=== PATIENT | male | born 1950 | race Caucasian/White ===

== ENCOUNTER 2019-06-21 17:25 | Emergency (ER) | payer MEDICARE, OTHER ==
[~2019-06-21] VITALS: Ht 175.3 cm; Wt 104.3 kg
[~2019-06-21 17:25] MED LIST: ASCO500 PO; CINNAMON PLUS1 EACH PO; DETOX; GLIP5 PO; GOLDENSEAL; INVOKANA300 MG PO; Multiple Vitam1 EAC1; OMEGA-3 EC SOF1 EAC1 PO; Prinivil10 MG PO; [UNRECOGNIZED DRUG - OTHER] PO
[2019-06-21 19:45] LABS: Source, Urine Catheter
[2019-06-21 19:58] LABS: Bilirubin, Urine Neg (Neg); Blood, Urine 5+ (Neg); Glucose Qualitative, Urine Neg (Neg); Ketones, Urine 1+ (Neg); Leukocyte Esterase, Urine Neg (Neg); Nitrite, Urine Neg (Neg); Protein, Urine 4+ (Neg); Specific Gravity, Urine 1.015 (1.003-1.022); Urobilinogen, Urine NORM (Normal); pH, Urine 6.5 (5.0-8.0)
[2019-06-21 20:08] LABS: Appearance, Urine Bloody (Clear); Color, Urine Red (P-Yellow)
[2019-06-21 20:13] LABS: Bacteria Not Seen /hpf; Red Blood Cells, Urine TNTC /hpf (0-2); Squamous Epithelial Cells Not Seen /hpf (Few); White Blood Cells, Urine Not Seen /hpf (0-5)
[2019-06-21 20:34] LABS: BASOPHILS ABSOLUTE AUTO 0.07 K/mm3 (0.00-0.23); BASOPHILS PERCENT AUTO 1 % (0-2); EOSINOPHILS ABSOLUTE AUTO 0.14 K/mm3 (0.00-0.68); EOSINOPHILS PERCENT AUTO 2 % (0-6); Hematocrit 47.1 % (37.0-53.0); IMMATURE GRAN ABSOLUTE AUTO 0.05 K/mm3 (0.00-0.10); IMMATURE GRAN PERCENT AUTO 1 % (0-1); LYMPHOCYTES ABSOLUTE AUTO 1.55 K/mm3 (0.84-5.20); LYMPHOCYTES PERCENT AUTO 22 % (21-46); MONOCYTES ABSOLUTE AUTO 0.57 K/mm3 (0.16-1.47); MONOCYTES PERCENT AUTO 8 % (4-13); Mean Corpuscular HGB 29.9 pg (26.0-34.0); Mean Corpuscular Volume 88 fL (80-100); Mean Platelet Volume 10.5 fL (9.1-12.4); NEUTROPHILS ABSOLUTE AUTO 4.83 K/mm3 (1.96-9.15); NEUTROPHILS PERCENT AUTO 67 % (41-73); Platelet Count 230 K/mm3 (150-400); RDW Coefficient Variation 13.7 % (11.7-14.2); RDW Standard Deviation 44.3 fL (35.1-46.3); Red Blood Cell Count 5.35 M/mm3 (4.30-5.90); White Blood Cell Count 7.21 K/mm3 (4.00-11.30)
[2019-06-21 20:49] LABS: Anion Gap 8 mmol/L (6-16); Blood Urea Nitrogen 23 mg/dL (8-24); Bun/Creatinine Ratio 20.9 (12.0-20.0); CO2, Blood 27 mmol/L (21-32); Calcium, Blood 8.9 mg/dL (8.5-10.1); Chloride, Blood 107 mmol/L (98-108); Glomerular Filtration Rate >60 (60-); Glucose, Blood 96 mg/dL (70-99); Sodium, Blood 142 mmol/L (136-145)
[2019-06-22] MEDS ORDERED: Flomax0.4 MG PO (02:39)
[2019-06-22] MEDS ORDERED: SILDENAFIL CIT100 MG PO (02:45)
== END 2019-06-21 21:24 | disposition home or self-care (01) ==
LOC: ER 17:25
PROVIDERS: Emergency Medicine
DX: R31.9 Hematuria, unspecified (principal); R33.9 Retention of urine, unspecified; E11.9 Type 2 diabetes mellitus without complications; I10 Essential (primary) hypertension; I48.91 Unspecified atrial fibrillation; Z88.8 Allergy status to other drugs, medicaments and biological substances; Z79.899 Other long term (current) drug therapy; Z79.84 Long term (current) use of oral hypoglycemic drugs; Z87.891 Personal history of nicotine dependence
CPT/HCPCS: 36415; 51700; 51702; 51798; 80048; 81001; 85025; 99283-25

== ENCOUNTER 2019-06-22 01:34 | Emergency (ER) | payer MEDICARE, OTHER ==
[~2019-06-22] VITALS: Ht 175.3 cm; Wt 104.3 kg
[2019-06-22 02:13] LABS: Source, Urine Catheter
[2019-06-22 02:16] LABS: Appearance, Urine Bloody (Clear); Bilirubin, Urine Neg (Neg); Blood, Urine 5+ (Neg); Color, Urine Red (P-Yellow); Glucose Qualitative, Urine Neg (Neg); Ketones, Urine Neg (Neg); Leukocyte Esterase, Urine Neg (Neg); Nitrite, Urine Neg (Neg); Protein, Urine 4+ (Neg); Specific Gravity, Urine 1.015 (1.003-1.022); Urobilinogen, Urine NORM (Normal); pH, Urine 6.5 (5.0-8.0)
[2019-06-22 02:22] LABS: Red Blood Cells, Urine TNTC /hpf (0-2); White Blood Cells, Urine 0-2 /hpf (0-5)
[2019-06-22 02:23] LABS: Bacteria Not Seen /hpf; Squamous Epithelial Cells Not Seen /hpf (Few)
[2019-06-22] MEDS ORDERED: Flomax0.4 MG PO (02:39)
[2019-06-22] MEDS ORDERED: SILDENAFIL CIT100 MG PO (02:45)
== END 2019-06-22 03:02 | disposition home or self-care (01) ==
LOC: ER 01:34
PROVIDERS: Emergency Medicine
DX: T83.83XA Hemorrhage due to genitourinary prosthetic devices, implants and grafts, initial encounter (principal); I10 Essential (primary) hypertension; E11.9 Type 2 diabetes mellitus without complications; I48.91 Unspecified atrial fibrillation; Z88.8 Allergy status to other drugs, medicaments and biological substances; Z79.899 Other long term (current) drug therapy; Z79.84 Long term (current) use of oral hypoglycemic drugs
CPT/HCPCS: 51700; 81001; 99283-25

== ENCOUNTER 2024-05-17 10:20 | Inpatient (IN) | payer MEDICARE, BC ==
[~2024-05-17] VITALS: Ht 170.2 cm; Wt 104.7 kg
[~2024-05-17 10:20] MED LIST changes: +Flomax0.4 MG PO; +SILDENAFIL CIT100 MG PO
[2024-05-17 11:50] LABS: BASOPHILS ABSOLUTE AUTO 0.08 K/mm3 (0.00-0.23); BASOPHILS PERCENT AUTO 1 % (0-2); EOSINOPHILS ABSOLUTE AUTO 0.05 K/mm3 (0.00-0.68); EOSINOPHILS PERCENT AUTO 0 % (0-6); Hematocrit 45.4 % (37.0-53.0); Hemoglobin 15.7 g/dL (13.5-17.5); IMMATURE GRAN ABSOLUTE AUTO 0.05 K/mm3 (0.00-0.10); IMMATURE GRAN PERCENT AUTO 0 % (0-1); LYMPHOCYTES PERCENT AUTO 15 % (21-46); MONOCYTES ABSOLUTE AUTO 1.03 K/mm3 (0.16-1.47); MONOCYTES PERCENT AUTO 8 % (4-13); Mean Corpuscular HGB 29.5 pg (26.0-34.0); Mean Corpuscular HGB Conc 34.6 g/dL (31.5-36.5); Mean Corpuscular Volume 85 fL (80-100); Mean Platelet Volume 10.2 fL (9.1-12.4); NEUTROPHILS ABSOLUTE AUTO 9.25 K/mm3 (1.96-9.15); NEUTROPHILS PERCENT AUTO 75 % (41-73); Platelet Count 259 K/mm3 (150-400); RDW Coefficient Variation 14.6 % (11.7-14.2); RDW Standard Deviation 45.4 fL (35.1-46.3); Red Blood Cell Count 5.33 M/mm3 (4.30-5.90); White Blood Cell Count 12.36 K/mm3 (4.00-11.30)
[2024-05-17 12:25] LABS: Albumin, Blood 3.9 g/dL (3.4-5.0); Albumin/Globulin Ratio 1.1 (0.8-1.8); Bilirubin, Total 1.4 mg/dL (0.1-1.0); Bun/Creatinine Ratio 15.1 (12.0-20.0); Calcium, Blood 8.8 mg/dL (8.5-10.1); Creatinine, Blood 1.26 mg/dL (0.60-1.20); Globulin, Blood 3.7 g/dL (2.2-4.0); Potassium, Blood 4.6 mmol/L (3.5-5.5); Total Protein, Blood 7.6 g/dL (6.4-8.2)
[2024-05-17] MEDS ORDERED: Aspirin 325 MG Tab PO ONE (13:45)
[2024-05-17 14:46] LABS: Source, Urine Clean Catch
[2024-05-17 15:03] LABS: Appearance, Urine Clear (Clear); Bilirubin, Urine Neg (Neg); Blood, Urine Neg (Neg); Color, Urine Yellow (P-Yellow); Glucose Qualitative, Urine Neg (Neg); Ketones, Urine 2+ (Neg); Leukocyte Esterase, Urine Neg (Neg); Nitrite, Urine Neg (Neg); Protein, Urine 2+ (Neg); Urobilinogen, Urine 1+ (Normal)
[2024-05-17 15:50] LABS: Bacteria Rare /hpf; Red Blood Cells, Urine 0-2 /hpf (0-2); Squamous Epithelial Cells Rare /hpf (Few); White Blood Cells, Urine 0-2 /hpf (0-5)
[2024-05-17] MEDS ORDERED: NS 1,000 ML IV SCH (16:15)
[2024-05-17 18:34] VITALS: BP 144/79
[2024-05-17] MEDS ORDERED: [UNRECOGNIZED DRUG - OTHER] (18:37)
[2024-05-17] MEDS ORDERED: LISI5 PO (18:42)
[2024-05-17] MEDS ORDERED: WARF10 (18:46)
[2024-05-17] MEDS ORDERED: METO25ER PO (18:47)
[2024-05-17] MEDS ORDERED: TADALAFIL5 M1 PO (18:49)
[2024-05-17] MEDS ORDERED: TESTOSTERONE PO (18:52)
[2024-05-17] MEDS ORDERED: NOVOLIN N100 UNIT/2 (18:54)
[2024-05-17] MEDS ORDERED: [UNRECOGNIZED DRUG - OTHER] (18:55)
[2024-05-17 19:46] VITALS: BP 159/80
--- NOTE | 2024-05-17 21:39 | NUR ---
ASSUMED CARE OF THIS PATIENT AT 1900. BEDSIDE SHIFT REPORT GIVEN FROM RN LUCILA SHE INFORMS ME THE PATIENT ARRIVED TO THE UNIT AROUND 1824. PATIENT IS BEDSIDE, SHE WAS ABLE TO ASSIT WITH ADMIT INFORMATION AND EXPLAIN PT LAST KNOWN WELL TIME. ON 05/14 THE COUPLE WENT TO BE AROUND 2200, THE FOLLOWING MORNING THEY AWOKE AND THE PATIENT GOT READY FOR WORK. HE SEEMED TO BE TIRED AND FEELING UNWELL. THE NEXT DAY HE SPENT MOST OF THE DAY IN BED AND TOLD HIS HE TOUGHT HE WAS GETTING THE FLU. THE PT WAS ADMITTED FOR RECENT CVA, DEFICTS AT THIS TIME TO BE EXPRESSIVE APHASIA. PATIENT IS ABLE TO ANSWER "YES" & "NO" QUESTIONS CORRECTLY HE IS ALERT AND ORIENTATED. PATIENT HAS FULL ROM AND MOBILITY. NO FACIAL DROOP NOTED, ABILITY TO SMILE AND STICK OUT TOUNGE INTACT. PATIENT IS NOW RESTING IN BED, SCD'S PLACED ON PT. BED IN LOWEST POSTION, CALL LIGHT IN REACH.
[2024-05-17 23:24] VITALS: BP 123/80
[2024-05-18] VITALS (7 sets, daily range): BP systolic 137–157; BP diastolic 71–99
--- NOTE | 2024-05-18 02:52 | NUR ---
NURSE NOTE PATIENT HAS NOT VOIDED DURING SHIFT, BLADDER SCAN SHOWED 274 mls. PATIENT DENIES NEEDS TO VOID. PATIENT IS DRY. PATIENT DENIES NEEDS AT THIS TIME. BED IN LOWEST POSTION CALL LIGHT IN REACH.
[2024-05-18 05:13] LABS: Hematocrit 43.2 % (37.0-53.0); Hemoglobin 14.9 g/dL (13.5-17.5); Mean Corpuscular HGB 29.3 pg (26.0-34.0); Mean Corpuscular HGB Conc 34.5 g/dL (31.5-36.5); Mean Corpuscular Volume 85 fL (80-100); Mean Platelet Volume 10.2 fL (9.1-12.4); Platelet Count 206 K/mm3 (150-400); RDW Coefficient Variation 14.6 % (11.7-14.2); RDW Standard Deviation 45.3 fL (35.1-46.3); Red Blood Cell Count 5.09 M/mm3 (4.30-5.90); White Blood Cell Count 9.75 K/mm3 (4.00-11.30)
[2024-05-18 06:12] LABS: Anion Gap 9 mmol/L (3-11); Blood Urea Nitrogen 20 mg/dL (8-24); Bun/Creatinine Ratio 18.7 (12.0-20.0); CHOL/HDL RATIO 5.3; CO2, Blood 25 mmol/L (21-32); Calcium, Blood 8.7 mg/dL (8.5-10.1); Chloride, Blood 103 mmol/L (98-108); Cholesterol 227 mg/dL (50-200); Creatinine, Blood 1.07 mg/dL (0.60-1.20); Glomerular Filtration Rate 74 (60-); Glucose, Blood 179 mg/dL (70-99); HDL Cholesterol 43 mg/dL (>39); LDL/HDL RATIO 3.8; Low Density Lipoprotein Chol 162 mg/dL (0-110); Potassium, Blood 4.1 mmol/L (3.5-5.5); Sodium, Blood 133 mmol/L (136-145); Triglycerides 111 mg/dL (30-160); Very Low Density Lipoprot Chol 22 mg/dL (6-32)
--- NOTE | 2024-05-18 06:16 | NUR ---
SHIFT SUMMARY PT IS A+O X4 ABLE TO ANSWER "YES" & "NO" QUESTIONS. HE IS PLEASANT AND COOPERATIVE WITH CARES. EXPRESSIVE APHASIA NOTED T/O SHIFT. MOVEMENT & ROM INTACT. PATIENT HAS BEEN SLEEPING ON AND OFF DURING THE NIGHT IN BETWEEN CARES. SCD'S WERE IN PLACE BUT PATIENT REMOVED THEM AND REFUSED FOR THEM TO BE PUT BACK ON. HE HAS YET TO VOID DURING THE NIGHT AND DENIES THE NEED TOO HE IS DRY. NS AT 60 RUNNING. MRI SCREENING FORM FILLED OUT AND FAXED THIS AM. Q6 CBG'S TAKEN. BED IN LOWEST POSTION, CALL LIGHT IN REACH, WILL CONTINUE WITH PLAN OF CARE AND REPORT TO ONCOMING RN.
[2024-05-18] MEDS ORDERED: Aspirin 325 MG Tab PO SCH (09:00)
[2024-05-18] MEDS ORDERED: Metoprolol Succinate 25 MG TABCR PO SCH (13:30)
[2024-05-18] MEDS ORDERED: Apixaban 5 MG Tab PO SCH (13:30)
[2024-05-18 13:58] LABS: International Normalized Ratio 1.07; Prothrombin Time Results 11.4 Sec (9.7-11.5)
[2024-05-18] MEDS ORDERED: Atorvastatin 40 MG Tab PO SCH (14:00)
[2024-05-18] MEDS ORDERED: Insulin Human Lispro 100 Units/ML 3ML Syringe SC SCH ×2 (17:00)
--- NOTE | 2024-05-18 18:34 | NUR ---
End of Shift Pt A&O x4. Speech improving. Pt able to clearly state "yes" & "no" this AM, then able to state more words t/o shift as day went on. Pt w/ intermittent difficulty stating name & . Pt answers questions w/ appropriate Y/N responses. Pt VSS. Spo2 > 92% on RA. Monitor showing Afib, HR 80s-110. Pt HR briefly up to 160s when ambulating for first time this morning. Pt HR then back to baseline once back in bed. Pt unable to void this AM. Bladder scan showing approx 360 mls urine. Pt eventually able to void. Post bladder scan void done this afternoon showing approx 90 mls. Pt tolerating PO intake well.
[2024-05-19 03:49] VITALS: BP 151/87
--- NOTE | 2024-05-19 04:53 | NUR ---
SHIFT SUMMARY NO ACUTE CHANGES THIS SHIF. VSS. NEURO REMAINS UNCHANGED. RESIDUAL CVA DEFICITS CENTER AROUND EXPRESSIVE DYSPHAGIA. NEUROMOTOR DEFICITS NOT NOTED TO THIS RN ASSESMENT. PT SOMETIMES ABLE TO STATE NAME AND YEAR OF AND SOMETIMES NOT ABLE TO. ALWAYS STATES WIFS ANME CORRCTLY AND AT TIMES GETS TOWN/HOSPITAL LOCATION CORRECT. PT STATES HE KNOW'S THESE ANSWERS BUT JUST CAN'T "SPIT THEM OUT". REMAINS AFIB, CONTROLLED. ON RA. CONTINENT. HAS RESTED T/O MAJORITY OF SHIFT. BED ALARM REMAINS ON. BED IN LOW POSITION.
[2024-05-19 08:07] VITALS: BP 163/84
[2024-05-19 08:25] LABS: Hematocrit 44.4 % (37.0-53.0); Hemoglobin 15.3 g/dL (13.5-17.5); Mean Corpuscular HGB 29.7 pg (26.0-34.0); Mean Corpuscular HGB Conc 34.5 g/dL (31.5-36.5); Mean Corpuscular Volume 86 fL (80-100); Mean Platelet Volume 10.1 fL (9.1-12.4); Platelet Count 193 K/mm3 (150-400); RDW Coefficient Variation 14.4 % (11.7-14.2); RDW Standard Deviation 45.8 fL (35.1-46.3); Red Blood Cell Count 5.16 M/mm3 (4.30-5.90); White Blood Cell Count 8.88 K/mm3 (4.00-11.30)
[2024-05-19 08:43] LABS: Bun/Creatinine Ratio 22.5 (12.0-20.0); Calcium, Blood 8.7 mg/dL (8.5-10.1); Creatinine, Blood 0.89 mg/dL (0.60-1.20); Potassium, Blood 4.5 mmol/L (3.5-5.5)
[2024-05-19] MEDS ORDERED: Lisinopril 5 MG Tab PO SCH (09:00)
[2024-05-19] MEDS ORDERED: Insulin Human Lispro 100 Units/ML 3ML Syringe SC SCH (12:00)
[2024-05-19 12:06] VITALS: BP 120/105
[2024-05-19] MEDS ORDERED: ELIQUIS5 M2 PO (13:29)
[2024-05-19] MEDS ORDERED: Lipitor80 MG PO (13:30)
--- NOTE | 2024-05-19 14:41 | NUR ---
PT DISCHAGRE TO HOME TODAY WITH DISCHARGE ORDER. PT TO CONTINUE ELIQUIS AT HOME AND FOLLOW UP WITH PHYSICAL AND SPEECH THERAPIST OUTPT. ALL NEW MEDICATIONS AND DISCHARGE INSTRUCTIONS DISCLOSED WITH BOTH PT AND . BOTH VERBALIZED UNDERSTANDING. NO OTHER ISSUES ENCOUNTERED PRIOR TO DC. ALL BELONGINGS SENT WITH THE PT. PT ACCOMPANIED VIA WHEELCHAIR UPON DC
== END 2024-05-19 13:57 | disposition home or self-care (01) | DRG 65 ==
LOC: ER 10:20 → PCU 16:13 → ERHOLD 16:13 → EDBEDREQTM 16:36 → EDBEDREQ 16:36 → PCU 18:25
PROVIDERS: Physician Assistant; ADMIT Internal Medicine
DX: I63.512 Cerebral infarction due to unspecified occlusion or stenosis of left middle cerebral artery (principal); E87.1 Hypo-osmolality and hyponatremia; N17.9 Acute kidney failure, unspecified; I48.0 Paroxysmal atrial fibrillation; N18.30 Chronic kidney disease, stage 3 unspecified; I12.9 Hypertensive chronic kidney disease with stage 1 through stage 4 chronic kidney disease, or unspecified chronic kidney disease; E78.5 Hyperlipidemia, unspecified; Z66 Do not resuscitate; E11.22 Type 2 diabetes mellitus with diabetic chronic kidney disease; T45.516A Underdosing of anticoagulants, initial encounter; I65.21 Occlusion and stenosis of right carotid artery; N40.0 Benign prostatic hyperplasia without lower urinary tract symptoms; R47.01 Aphasia; R29.705 NIHSS score 5; Z79.01 Long term (current) use of anticoagulants; Z91.138 Patient's unintentional underdosing of medication regimen for other reason; Z88.8 Allergy status to other drugs, medicaments and biological substances; Z79.84 Long term (current) use of oral hypoglycemic drugs; Z85.51 Personal history of malignant neoplasm of bladder
CPT/HCPCS: 36415; 70450; 70496; 70498; 70551; 80048; 80053; 80061; 81001; 82947; 83036; 85025; 85027; 85610; 85730; 92523; 92610; 93005; 93010; 93880; 97110; 97116; 97161; 97165; 99285-25; A9270; C8929; J7030; Q9957; Q9967

== ENCOUNTER 2024-05-24 08:44 | Inpatient (IN) | payer MEDICARE, BC ==
[~2024-05-24] VITALS: Ht 175.3 cm; Wt 109.9 kg
[~2024-05-24 08:44] MED LIST changes: +ELIQUIS5 M2 PO; +LISI5 PO; +Lipitor80 MG PO; +METO25ER PO; +NOVOLIN N100 UNIT/2; +TADALAFIL5 M1 PO; +TESTOSTERONE PO; +WARF10; +[UNRECOGNIZED DRUG - OTHER]; +[UNRECOGNIZED DRUG - OTHER]
[2024-05-24] MEDS ORDERED: Ondansetron HCl 2 MG / ML 2ML Vial IV ONE (09:55)
[2024-05-24] MEDS ORDERED: FentaNYL Citrate 50 MCG/ML 2 ML Injection IV ONE (09:55)
[2024-05-24 10:41] LABS: BASOPHILS ABSOLUTE AUTO 0.07 K/mm3 (0.00-0.23); BASOPHILS PERCENT AUTO 1 % (0-2); EOSINOPHILS ABSOLUTE AUTO 0.04 K/mm3 (0.00-0.68); EOSINOPHILS PERCENT AUTO 0 % (0-6); Hematocrit 42.6 % (37.0-53.0); Hemoglobin 14.7 g/dL (13.5-17.5); IMMATURE GRAN ABSOLUTE AUTO 0.06 K/mm3 (0.00-0.10); IMMATURE GRAN PERCENT AUTO 1 % (0-1); LYMPHOCYTES ABSOLUTE AUTO 0.62 K/mm3 (0.84-5.20); LYMPHOCYTES PERCENT AUTO 5 % (21-46); MONOCYTES ABSOLUTE AUTO 0.59 K/mm3 (0.16-1.47); MONOCYTES PERCENT AUTO 5 % (4-13); Mean Corpuscular HGB 29.9 pg (26.0-34.0); Mean Corpuscular HGB Conc 34.5 g/dL (31.5-36.5); Mean Corpuscular Volume 87 fL (80-100); Mean Platelet Volume 10.8 fL (9.1-12.4); NEUTROPHILS ABSOLUTE AUTO 10.33 K/mm3 (1.96-9.15); NEUTROPHILS PERCENT AUTO 88 % (41-73); Platelet Count 268 K/mm3 (150-400); RDW Coefficient Variation 14.3 % (11.7-14.2); RDW Standard Deviation 45.4 fL (35.1-46.3); Red Blood Cell Count 4.92 M/mm3 (4.30-5.90); White Blood Cell Count 11.71 K/mm3 (4.00-11.30)
[2024-05-24 11:19] LABS: Albumin, Blood 3.7 g/dL (3.4-5.0); Bilirubin, Total 1.1 mg/dL (0.1-1.0); Bun/Creatinine Ratio 23.4 (12.0-20.0); Calcium, Blood 9.7 mg/dL (8.5-10.1); Creatinine, Blood 1.07 mg/dL (0.60-1.20); Globulin, Blood 3.7 g/dL (2.2-4.0); Potassium, Blood 4.2 mmol/L (3.5-5.5); Total Protein, Blood 7.4 g/dL (6.4-8.2)
[2024-05-24] MEDS ORDERED: Ampicillin Sod/Sulbactam Sod 3 GM in NS 100 ML IV ONE (11:55)
[2024-05-24] MEDS ORDERED: HYDROmorphone HCl/Pf 1MG SYR IV ONE (11:55)
[2024-05-24] MEDS ORDERED: Docusate Sodium/Senna 1 Tab PO PRN (16:30)
[2024-05-24] MEDS ORDERED: NS 1,000 ML IV SCH (16:30)
[2024-05-24] MEDS ORDERED: Ondansetron HCl 2 MG / ML 2ML Vial IV PRN (16:30)
[2024-05-24] MEDS ORDERED: Lisinopril 5 MG Tab PO SCH (17:00)
[2024-05-24] MEDS ORDERED: Metoprolol Succinate 25 MG TABCR PO SCH (17:00)
[2024-05-24 17:12] VITALS: BP 150/106
--- NOTE | 2024-05-24 17:14 | NUR ---
PT TO ROOM 213 VIA W/C. ORIENTED TO ROOM. SO AT BEDSIDE. BELLY SOFT. BT POSITIVE. LOCALIZES PAIN TO EPIGASTRUM. RECENT CVA ONE WEEK AGO. EXPRESSIVE APHASIA MILD. SIENNA. LAB IN TO DRAW PT. BP ELEVATED. OTHER VSS. 22 G SL PRESENT RFA.
[2024-05-24] MEDS ORDERED: Dose Adjust by Pharmacy XX STA (17:50)
[2024-05-24 17:53] LABS: Anti-Xa UFH, PHA Monitoring <0.10 IU/mL; International Normalized Ratio 1.16; Prothrombin Time Results 12.3 Sec (9.7-11.5)
[2024-05-24] MEDS ORDERED: Heparin Sodium,Porcine/0.5 NS 500 ML IV SCH (18:00)
[2024-05-24] MEDS ORDERED: Ampicillin Sod/Sulbactam Sod 3 GM in NS 100 ML IV SCH (18:00)
[2024-05-24] MEDS ORDERED: Morphine Sulfate 4 MG/1 ML Injection IV PRN (18:35)
--- NOTE | 2024-05-24 18:35 | NUR ---
END OF SHIFT PT RESTING QUIETLY ON BED. SPOUSE AT BEDSIDE. HEPARIN INFUSING R ARM. NEW PAIN MED ORDERS AWAITING PHARMACY APPROVAL IN PROGRESS. WILL CONTINUE TO MONITOR.
[2024-05-24 20:02] VITALS: BP 166/83
[2024-05-24] MEDS ORDERED: Lactobacil 2-S.Thermo-Bifido 1 1 Cap PO SCH (21:00)
[2024-05-25] MEDS ORDERED: Dose Adjust by Pharmacy XX STA ×3 (01:20→14:36)
[2024-05-25 04:05] VITALS: BP 172/93
--- NOTE | 2024-05-25 04:47 | NUR ---
CHEMISTRY FACULTY MEMBER SUMMARY PT AAOX3-4 WITH INTERMITTENT CONFUSION. DOES MAKE HIS NEEDS KNOWN THOUGH. PT RECEIVED 2 MG IV MORPHINE AT START OF SHIFT FOR RLQ PAIN AND PAIN HAS BEEN WELL MANAGED SINCE. HEPARIN DRIP CONTINUES, TITRATED UP ONCE PER PHARMACY. PT IS STABLE WITH A STANDBY ASSIST. DENIES NAUSEA AND HAS MAINTAINED NPO STATUS. VSS, WILL CONTINUE TO MONITOR.
[2024-05-25 07:32] LABS: BASOPHILS ABSOLUTE AUTO 0.05 K/mm3 (0.00-0.23); BASOPHILS PERCENT AUTO 0 % (0-2); EOSINOPHILS ABSOLUTE AUTO 0.01 K/mm3 (0.00-0.68); EOSINOPHILS PERCENT AUTO 0 % (0-6); Hematocrit 42.9 % (37.0-53.0); Hemoglobin 14.6 g/dL (13.5-17.5); IMMATURE GRAN ABSOLUTE AUTO 0.08 K/mm3 (0.00-0.10); IMMATURE GRAN PERCENT AUTO 1 % (0-1); LYMPHOCYTES ABSOLUTE AUTO 0.44 K/mm3 (0.84-5.20); LYMPHOCYTES PERCENT AUTO 3 % (21-46); MONOCYTES ABSOLUTE AUTO 1.62 K/mm3 (0.16-1.47); MONOCYTES PERCENT AUTO 9 % (4-13); Mean Corpuscular HGB 29.7 pg (26.0-34.0); Mean Corpuscular Volume 87 fL (80-100); Mean Platelet Volume 10.4 fL (9.1-12.4); NEUTROPHILS ABSOLUTE AUTO 15.56 K/mm3 (1.96-9.15); NEUTROPHILS PERCENT AUTO 88 % (41-73); Platelet Count 219 K/mm3 (150-400); RDW Coefficient Variation 14.4 % (11.7-14.2); RDW Standard Deviation 46.5 fL (35.1-46.3); Red Blood Cell Count 4.91 M/mm3 (4.30-5.90); White Blood Cell Count 17.76 K/mm3 (4.00-11.30)
[2024-05-25 07:38] VITALS: BP 158/90
[2024-05-25 07:39] VITALS: BP 150/104
[2024-05-25 07:55] LABS: Bun/Creatinine Ratio 20.1 (12.0-20.0); Calcium, Blood 8.7 mg/dL (8.5-10.1); Creatinine, Blood 0.75 mg/dL (0.60-1.20); Potassium, Blood 4.2 mmol/L (3.5-5.5)
--- NOTE | 2024-05-25 08:33 | NUR ---
HEPARIN TO CONTINUE AT 16U/KG/HR PER RPH. NEXT ANTI XA AT 1400
[2024-05-25] MEDS ORDERED: Famotidine 20 MG Tab PO SCH (10:00)
--- NOTE | 2024-05-25 14:41 | NUR ---
HEPARIN RATE HEPARIN RATE TO CONTINUE AT 16U/KG/HR PER RPH. VERIFIED BY VITALY/BRENDA
[2024-05-25 14:54] VITALS: BP 153/107
--- NOTE | 2024-05-25 18:21 | NUR ---
END OF SHIFT PT RESTING. REMAINS NPO. IV AND HEPARIN BOTH INFUSING RIGHT ARM. HEPARIN PRESENTLY AT 16U/KG/HR. AT BEDSIDE. WILL CONTINUE TO MONITOR
[2024-05-25 19:16] VITALS: BP 159/77
[2024-05-25] MEDS ORDERED: OMEP20ER PO (21:24)
[2024-05-25] MEDS ORDERED: DABI150C (21:35)
[2024-05-25 22:32] VITALS: BP 153/85
[2024-05-25] MEDS ORDERED: Insulin NPH 10 Unit/0.1ML (Single Dose) SC ONE (23:00)
--- NOTE | 2024-05-25 23:02 | NUR ---
CALL TO HOSPITALIST/NEW ORDERS. CALL PLACED TO DR. CEBALLOS REGARDING ORDERS FOR INSULIN AND GLUCOSE CHECKS. ORDERS RECEIVED FOR NOVOLIN N 10 UNITS NOW, THEN 10 UNITS BID AFTERWARDS AND CHEM BG CHECKS EVERY 6 HOURS WITH NO CORRECTIVE SCALE D/T NPO FOR PROCEDURE IN AM. NOTIFIED DR. CEBALLOS OF NOTED HEART RATE CONSISTENTLY IN LOW 100S, NO NEW ORDERS REGARDING HEART RATE.
[2024-05-26 04:15] VITALS: BP 157/88
[2024-05-26 06:17] LABS: Hematocrit 38.1 % (37.0-53.0); Hemoglobin 12.7 g/dL (13.5-17.5); Mean Platelet Volume 10.4 fL (9.1-12.4); Platelet Count 213 K/mm3 (150-400)
--- NOTE | 2024-05-26 06:18 | NUR ---
SHIFT SUMMARY NOC. PT ADMIT FOR CHOLECYSTITIS, PLAN FOR HIDA SCAN THIS AM. PT HAS BEEN NPO AND DENIES PAIN OR NEED FOR PAIN MEDICATION. PT IS IMPULSIVE GETTING OUT OF BED THIS SHIFT AND HAS SET OFF BED ALARM. PT OVERESTIMATES ABILITIES. NS AND HEPARIN RUNNING PER EMAR. PT VOIDING URINE. NEW ORDERS RECEIVED FOR CHEM BGS AND INSULIN THIS SHIFT, SEE PREVIOUS NOTE. CALL LIGHT IN REACH.
[2024-05-26 07:08] VITALS: BP 152/81
[2024-05-26] MEDS ORDERED: Insulin NPH 100 Unit / ML 10ML Vial SC SCH (08:00)
--- NOTE | 2024-05-26 09:13 | NUR ---
PT TO IMAGING AT THIS TIME ONCE MORE
[2024-05-26 09:56] VITALS: BP 145/77
[2024-05-26 15:40] VITALS: BP 141/94
--- NOTE | 2024-05-26 18:06 | NUR ---
SUMMARY: PT A/O, VSS. HIDA SCAN COMPLETED TODAY, PT TOLERATED WELL. PT HAS DENIED WORSENING SX. NO PAIN OR N/V. HEPARIN DRIP CONTINUE TO INFUSE, NO CHANGE IN RATE TODAY. IV ANTIBIOTIC INFUSED. PT USING CALL LIGHT AND MAKES NEEDS KNOWN.
[2024-05-26 19:38] VITALS: BP 137/80
[2024-05-27 02:57] VITALS: BP 148/73
[2024-05-27 03:18] LABS: BASOPHILS ABSOLUTE AUTO 0.05 K/mm3 (0.00-0.23); BASOPHILS PERCENT AUTO 1 % (0-2); EOSINOPHILS ABSOLUTE AUTO 0.36 K/mm3 (0.00-0.68); EOSINOPHILS PERCENT AUTO 4 % (0-6); Hematocrit 34.5 % (37.0-53.0); Hemoglobin 11.5 g/dL (13.5-17.5); IMMATURE GRAN ABSOLUTE AUTO 0.14 K/mm3 (0.00-0.10); IMMATURE GRAN PERCENT AUTO 1 % (0-1); LYMPHOCYTES PERCENT AUTO 9 % (21-46); MONOCYTES ABSOLUTE AUTO 0.78 K/mm3 (0.16-1.47); MONOCYTES PERCENT AUTO 8 % (4-13); Mean Corpuscular HGB 29.6 pg (26.0-34.0); Mean Corpuscular HGB Conc 33.3 g/dL (31.5-36.5); Mean Corpuscular Volume 89 fL (80-100); Mean Platelet Volume 10.4 fL (9.1-12.4); NEUTROPHILS ABSOLUTE AUTO 7.83 K/mm3 (1.96-9.15); NEUTROPHILS PERCENT AUTO 78 % (41-73); Platelet Count 196 K/mm3 (150-400); RDW Coefficient Variation 14.6 % (11.7-14.2); RDW Standard Deviation 47.3 fL (35.1-46.3); Red Blood Cell Count 3.89 M/mm3 (4.30-5.90); White Blood Cell Count 10.06 K/mm3 (4.00-11.30)
[2024-05-27 03:38] LABS: Albumin, Blood 2.5 g/dL (3.4-5.0); Albumin/Globulin Ratio 0.8 (0.8-1.8); Bilirubin, Total 0.6 mg/dL (0.1-1.0); Bun/Creatinine Ratio 20.1 (12.0-20.0); Creatinine, Blood 0.8 mg/dL (0.60-1.20); Globulin, Blood 3.2 g/dL (2.2-4.0); Potassium, Blood 3.5 mmol/L (3.5-5.5); Total Protein, Blood 5.7 g/dL (6.4-8.2)
--- NOTE | 2024-05-27 04:45 | NUR ---
SHIFT SUMMARY RENATE WAS ALERT AND FULLY ORIENTED ON ASSESSMENT. PT DENIES PAIN OR NAUSEA TONIGHT. BED ALARM KEPT IN PLACE D/T FORGETFULNESS. NO ACUTE EVENTS NO NOTED CHANGES TO PT CONDITION. PT NPO AT THIS TIME.
[2024-05-27] MEDS ORDERED: Dose Adjust by Pharmacy XX STA (05:28)
[2024-05-27 07:16] VITALS: BP 153/93
[2024-05-27] MEDS ORDERED: Metoprolol Succinate 25 MG TABCR PO SCH (09:00)
--- NOTE | 2024-05-27 10:58 | NUR ---
HEPARIN DRIP STOPPED AT 0940 FOR PLANNED DRAIN PLACEMENT THIS AFTERNOON, STOPPED PER DR. CARMONA. DR. THOMAS NOTIFIEDTHAT HEP GTT WAS STOPPED. PER DR. THOMAS HOLD NPH INSULIN THIS AM SINCE PT IS ON CLEAR LIQUIDS ONLY.
--- NOTE | 2024-05-27 13:00 | NUR ---
ALBERT IN PHARMACY NOTIFIED THAT HEP GTT WAS STOPPED AT 0940, FOR PLANNED PROCEDURE AT 3PM.
[2024-05-27 14:07] VITALS: BP 165/92
[2024-05-27] MEDS ORDERED: METO25ER PO (16:18)
[2024-05-27] MEDS ORDERED: OxyCODONE HCL 5 MG TAB PO PRN (16:35)
[2024-05-27] MEDS ORDERED: Acetaminophen 500 MG Tab PO SCH (16:35)
--- NOTE | 2024-05-27 17:20 | NUR ---
PT ARRIVED BACK FROM DRAIN PLACEMENT AT APPROXIMATELY 1620. DR. THOMAS NOTIFIED THAT PT RETURNED FROM PLACEMENT. PER DR. THOMAS RESTART HEPARIN DRIP AT 1730.
--- NOTE | 2024-05-27 19:24 | NUR ---
SHIFT SUMMARY PT HAD RADIOLOGY GUIDED DRAIN PLACED, DARK RED/BLACK OUTPUT. PT WAS INITIALLY PAINFUL, PAIN IMPROVED WITH OXYCODONE AND TYLENOL. PT HAS BEEN INDEPENDENT IN THE ROOM TODAY. PT IS TOLERATED A CLEAR LIQUID TRAY THIS EVENING. BEDSIDE REPORT GIVEN TO NOC RN, PT WOKE WITH VERBAL STIMULI FOR INTRODUCTION TO NOC RN.
[2024-05-27 20:20] VITALS: BP 157/71
[2024-05-28] VITALS (9 sets, daily range): BP systolic 159–198; BP diastolic 69–102
[2024-05-28 03:11] LABS: BASOPHILS ABSOLUTE AUTO 0.05 K/mm3 (0.00-0.23); BASOPHILS PERCENT AUTO 1 % (0-2); EOSINOPHILS ABSOLUTE AUTO 0.38 K/mm3 (0.00-0.68); EOSINOPHILS PERCENT AUTO 5 % (0-6); Hematocrit 34.1 % (37.0-53.0); Hemoglobin 11.5 g/dL (13.5-17.5); IMMATURE GRAN ABSOLUTE AUTO 0.13 K/mm3 (0.00-0.10); IMMATURE GRAN PERCENT AUTO 2 % (0-1); LYMPHOCYTES ABSOLUTE AUTO 0.84 K/mm3 (0.84-5.20); LYMPHOCYTES PERCENT AUTO 12 % (21-46); MONOCYTES ABSOLUTE AUTO 0.58 K/mm3 (0.16-1.47); MONOCYTES PERCENT AUTO 8 % (4-13); Mean Corpuscular HGB 29.6 pg (26.0-34.0); Mean Corpuscular HGB Conc 33.7 g/dL (31.5-36.5); Mean Corpuscular Volume 88 fL (80-100); Mean Platelet Volume 10.2 fL (9.1-12.4); NEUTROPHILS ABSOLUTE AUTO 5.28 K/mm3 (1.96-9.15); NEUTROPHILS PERCENT AUTO 73 % (41-73); Platelet Count 213 K/mm3 (150-400); RDW Coefficient Variation 14.3 % (11.7-14.2); RDW Standard Deviation 46.4 fL (35.1-46.3); Red Blood Cell Count 3.88 M/mm3 (4.30-5.90); White Blood Cell Count 7.26 K/mm3 (4.00-11.30)
[2024-05-28 03:30] LABS: Bun/Creatinine Ratio 15.5 (12.0-20.0); Creatinine, Blood 0.84 mg/dL (0.60-1.20); Potassium, Blood 3.3 mmol/L (3.5-5.5)
[2024-05-28] MEDS ORDERED: Dose Adjust by Pharmacy XX STA (04:07)
--- NOTE | 2024-05-28 07:48 | NUR ---
SHIFT SUMMARY RESPONDED TO VERBAL STIMULI & ONLY ORIENTED x1. VERY GROGGY, SLURRING WORDS, W/INCREASED EXPRESSIVE APHASIA @BEGINNING OF SHIFT. PER DAY RN REPORT PT HAD RECIEVED OXYCODONE PRIOR TO THIS RN COMING ON SHIFT. NIGHT PROGRESSED PT ABLE TO CLEARLY SPEAK & RESPOND TO QUESTIONS CORRECTLY. AOX3-4 THIS AM. VSS T/O NIGHT. POD1-PERCU DRAIN TO RUQ. DRESSING C/D/I. HAD 20ML SANGINOUS DRAINAGE/DARK RED. HEP GTT RUNNING 26.9ML/HR. DENIES N/V OR DYSPNEA. REPORTS FEELING BLOATED & UNABLE TO PASS FLATUS LAST NIGHT. UP MULTx TO RESTROOM TO VOID, NO BM. CALL LIGHT & BED ALARM IN REACH.
[2024-05-28] MEDS ORDERED: Calcium Carbonate 500 MG Tab Chew PO PRN (16:20)
[2024-05-28] MEDS ORDERED: Labetalol HCL 5 MG/ML 4ML Injection (Single Dose) IV PRN (16:25)
[2024-05-28] MEDS ORDERED: HydrALAZINE HCl 20 MG / ML 1ML Vial IV PRN (16:25)
--- NOTE | 2024-05-28 16:45 | NUR ---
HTN 1535- BP 198/11 HR 100. PT REPORTED HE WAS UP TO THE BATHROOM JUST BEFORE STAFF CHECKED HIS BLOOD PRESSURE. PT ALLOWED TO REST FOR 15 MINUTES. 1555- ON RECHECK BP 204/88 HR 96. CALL PLACED TO DR. THOMAS, MESSAGE LEFT. PT A&O X3 PER BASELINE, HE DENIES CHEST PAIN, SHORTNESS OF BREATH AND DIZZINESS. HE DOES REPORT HEART BURN. 1620- RETURN CALL PLACED TO DR. THOMAS, SPOKE WITH DR. THOMAS AT 1620, ORDERS FOR TUMS, TELE AND LABETOLOL PLACED BY DR. THOMAS. TUBE DEPATCHER DIMITRI NOTIFIED.
[2024-05-28] MEDS ORDERED: Dabigatran Etexilate Mesylate 150 MG CAPSULE PO SCH (18:00)
[2024-05-29] VITALS (7 sets, daily range): BP systolic 149–189; BP diastolic 80–95
--- NOTE | 2024-05-29 04:58 | NUR ---
SHIFT SUMMARY NO ACUTE CHANGES THIS SHIFT. POD 2-PERC DRAIN PLACED TO RUQ, 40ML DARK RED SANGUINOUS DRAINAGE IN URESIL. DENIES N/V. GERRY MIN CLEARS. DENIES ANY PAIN. VSS. TELE AFIB 90. AOX4. CALL LIGHT & BED ALARM IN PLACE FOR IMPULSIVENESS.
[2024-05-29] MEDS ORDERED: Lisinopril 10 MG Tab PO ONE (09:00)
--- NOTE | 2024-05-29 14:51 | NUR ---
DISCHARGE DISCHARGE INSTRUCT REVIEWED WITH PT AND SO. STATED UNDERSTANDING. DRAIN CARE AND EMPTYING TAUGHT WITH VERBAL FEEDBACK. STATED UNDERSTANDING. PRINTED INSTRUCT DISPENSED. DC'D TO POV VIA W/C WITH PRINTED INSTRUCT.
[2024-05-30] MEDS ORDERED: Lisinopril 20 MG Tab PO SCH (09:00)
== END 2024-05-29 14:57 | disposition home or self-care (01) | DRG 445 ==
LOC: ER 08:44 → SURS 08:45
PROVIDERS: Student in an Organized Health Care Education/Training Program; Surgery; ADMIT Family Medicine
PROC: 0F9430Z Drainage of Gallbladder with Drainage Device, Percutaneous Approach (ICD-10-PCS; principal; 2024-05-27)
DX: K81.0 Acute cholecystitis (principal); I48.20 Chronic atrial fibrillation, unspecified; I69.354 Hemiplegia and hemiparesis following cerebral infarction affecting left non-dominant side; E11.9 Type 2 diabetes mellitus without complications; I10 Essential (primary) hypertension; N40.0 Benign prostatic hyperplasia without lower urinary tract symptoms; Z96.651 Presence of right artificial knee joint; Z79.811 Long term (current) use of aromatase inhibitors; Z79.85 Long-term (current) use of injectable non-insulin antidiabetic drugs; Z88.8 Allergy status to other drugs, medicaments and biological substances; Z79.01 Long term (current) use of anticoagulants; Z79.899 Other long term (current) drug therapy; Z85.51 Personal history of malignant neoplasm of bladder; Z90.49 Acquired absence of other specified parts of digestive tract; Z87.891 Personal history of nicotine dependence
CPT/HCPCS: 36415; 49405; 51798; 74177; 78226; 80048; 80053; 82947; 83690; 85014; 85018; 85025; 85049; 85520; 85610; 85730; 93005; 93010; 96365-59; 96366; 96367; 96368; 96375; 96376; 99285-25; A9270; A9537; G0378; J0295; J1171; J1644; J1815; J2270; J2405; J3010; J7030; Q9967

== ENCOUNTER 2024-06-08 18:50 | Emergency (ER) | payer MEDICARE, BC ==
[~2024-06-08] VITALS: Ht 175.3 cm; Wt 99.3 kg
[~2024-06-08 18:50] MED LIST changes: +DABI150C; +OMEP20ER PO
[2024-06-08 19:38] LABS: BASOPHILS ABSOLUTE AUTO 0.06 K/mm3 (0.00-0.23); BASOPHILS PERCENT AUTO 1 % (0-2); EOSINOPHILS ABSOLUTE AUTO 0.18 K/mm3 (0.00-0.68); EOSINOPHILS PERCENT AUTO 2 % (0-6); Hematocrit 42.3 % (37.0-53.0); Hemoglobin 14.3 g/dL (13.5-17.5); IMMATURE GRAN ABSOLUTE AUTO 0.05 K/mm3 (0.00-0.10); IMMATURE GRAN PERCENT AUTO 1 % (0-1); LYMPHOCYTES ABSOLUTE AUTO 1.25 K/mm3 (0.84-5.20); LYMPHOCYTES PERCENT AUTO 16 % (21-46); MONOCYTES ABSOLUTE AUTO 0.79 K/mm3 (0.16-1.47); MONOCYTES PERCENT AUTO 10 % (4-13); Mean Corpuscular HGB 29.5 pg (26.0-34.0); Mean Corpuscular HGB Conc 33.8 g/dL (31.5-36.5); Mean Corpuscular Volume 87 fL (80-100); Mean Platelet Volume 9.6 fL (9.1-12.4); NEUTROPHILS ABSOLUTE AUTO 5.27 K/mm3 (1.96-9.15); NEUTROPHILS PERCENT AUTO 69 % (41-73); Platelet Count 363 K/mm3 (150-400); RDW Coefficient Variation 14.5 % (11.7-14.2); RDW Standard Deviation 46.5 fL (35.1-46.3); Red Blood Cell Count 4.84 M/mm3 (4.30-5.90)
[2024-06-08 19:59] LABS: Albumin, Blood 3.6 g/dL (3.4-5.0); Albumin/Globulin Ratio 0.9 (0.8-1.8); Bilirubin, Total 0.7 mg/dL (0.1-1.0); Bun/Creatinine Ratio 16.5 (12.0-20.0); Calcium, Blood 9.3 mg/dL (8.5-10.1); Creatinine, Blood 1.03 mg/dL (0.60-1.20); Globulin, Blood 3.9 g/dL (2.2-4.0); Potassium, Blood 4.3 mmol/L (3.5-5.5); Total Protein, Blood 7.5 g/dL (6.4-8.2)
[2024-06-08 20:42] LABS: International Normalized Ratio 1.16; Prothrombin Time Results 12.3 Sec (9.7-11.5)
[2024-06-08 20:56] LABS: Magnesium, Blood 2.3 mg/dL (1.6-2.4); Phosphorus, Blood 4.2 mg/dL (2.5-4.9)
[2024-06-08] MEDS ORDERED: ATOR40TA PO (23:13)
[2024-06-08 23:30] VITALS: BP 141/95
== END 2024-06-08 23:40 | disposition home or self-care (01) ==
LOC: ER 18:50
PROVIDERS: Student in an Organized Health Care Education/Training Program
DX: I63.512 Cerebral infarction due to unspecified occlusion or stenosis of left middle cerebral artery (principal); R29.810 Facial weakness; E11.9 Type 2 diabetes mellitus without complications; I10 Essential (primary) hypertension; I48.91 Unspecified atrial fibrillation; E78.5 Hyperlipidemia, unspecified; Z87.891 Personal history of nicotine dependence; Z79.4 Long term (current) use of insulin; Z79.899 Other long term (current) drug therapy; Z88.8 Allergy status to other drugs, medicaments and biological substances
CPT/HCPCS: 70450; 70496; 70498; 71045; 80053; 83735; 84100; 84484; 85025; 85610; 85730; 93005; 93010; 99285-25; Q9967

== ENCOUNTER 2024-06-13 19:48 | Emergency (ER) | payer MEDICARE, BC ==
[~2024-06-13] VITALS: Ht 175.3 cm; Wt 99.8 kg
[~2024-06-13 19:48] MED LIST changes: +ATOR40TA PO
[2024-06-13 20:26] VITALS: BP 129/72
[2024-06-13 20:28] LABS: BASOPHILS ABSOLUTE AUTO 0.08 K/mm3 (0.00-0.23); BASOPHILS PERCENT AUTO 1 % (0-2); EOSINOPHILS ABSOLUTE AUTO 0.26 K/mm3 (0.00-0.68); EOSINOPHILS PERCENT AUTO 4 % (0-6); Hematocrit 43.2 % (37.0-53.0); Hemoglobin 14.5 g/dL (13.5-17.5); IMMATURE GRAN ABSOLUTE AUTO 0.04 K/mm3 (0.00-0.10); IMMATURE GRAN PERCENT AUTO 1 % (0-1); LYMPHOCYTES ABSOLUTE AUTO 1.35 K/mm3 (0.84-5.20); LYMPHOCYTES PERCENT AUTO 18 % (21-46); MONOCYTES ABSOLUTE AUTO 0.67 K/mm3 (0.16-1.47); MONOCYTES PERCENT AUTO 9 % (4-13); Mean Corpuscular HGB 29.5 pg (26.0-34.0); Mean Corpuscular HGB Conc 33.6 g/dL (31.5-36.5); Mean Corpuscular Volume 88 fL (80-100); Mean Platelet Volume 10.1 fL (9.1-12.4); NEUTROPHILS ABSOLUTE AUTO 5.09 K/mm3 (1.96-9.15); NEUTROPHILS PERCENT AUTO 68 % (41-73); Platelet Count 295 K/mm3 (150-400); RDW Coefficient Variation 14.6 % (11.7-14.2); RDW Standard Deviation 47.8 fL (35.1-46.3); Red Blood Cell Count 4.91 M/mm3 (4.30-5.90); White Blood Cell Count 7.49 K/mm3 (4.00-11.30)
[2024-06-13 20:57] LABS: Albumin, Blood 3.6 g/dL (3.4-5.0); Albumin/Globulin Ratio 0.9 (0.8-1.8); Bilirubin, Total 0.7 mg/dL (0.1-1.0); Bun/Creatinine Ratio 19.8 (12.0-20.0); Calcium, Blood 9.1 mg/dL (8.5-10.1); Creatinine, Blood 1.11 mg/dL (0.60-1.20); Globulin, Blood 3.9 g/dL (2.2-4.0); Potassium, Blood 4.6 mmol/L (3.5-5.5); Total Protein, Blood 7.5 g/dL (6.4-8.2)
== END 2024-06-13 22:29 | disposition home or self-care (01) ==
LOC: ER 19:48
PROVIDERS: Emergency Medicine
DX: I63.9 Cerebral infarction, unspecified (principal); R29.810 Facial weakness; E11.9 Type 2 diabetes mellitus without complications; I10 Essential (primary) hypertension; E78.5 Hyperlipidemia, unspecified; Z88.8 Allergy status to other drugs, medicaments and biological substances; Z79.4 Long term (current) use of insulin; Z79.899 Other long term (current) drug therapy; Z87.891 Personal history of nicotine dependence
CPT/HCPCS: 70450; 80053; 82947; 85025; 93005; 93010; 99285-25